=== PATIENT | female | born 1960 | race Caucasian/White ===

== ENCOUNTER 2018-08-14 11:08 | Emergency (ER) | payer BC ==
[~2018-08-14] VITALS: Ht 149.9 cm; Wt 68.0 kg
[2018-08-14 11:15] VITALS: BP 126/89
--- NOTE | 2018-08-14 11:18 | NUR ---
PT TRIAGED AND AMBULATED TO ER LOBBY.
--- NOTE | 2018-08-14 13:00 | NUR ---
PT AMBULATED TO BED 3
--- NOTE | 2018-08-14 13:10 | NUR ---
PT IS A 57 Y/O FEMALE WHO PRESENTS TO THE ED C/O BILATERAL ARM PAIN. 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 PT REPORTS 8/10 ACHING UPPER ARM/SHOULDER PAIN RADIATES TO THE BACK, REPORTS TAKING TYLENOL WITH NO RELIEF. PT DENIES CP, SOB, N/V/D. CMS INTACT, FULL ROM NOTED. PT AWAKE AND ALERT, RR EVEN/UNLABORED. PT REPOSITIONED FOR COMFORT, BED IN LOWEST POSITION. ER MD DR. MALAGON NOTIFIED. WILL CONTINUE TO MONITOR. PMH---ASTHMA NKA
--- NOTE | 2018-08-14 13:30 | NUR ---
PATIENT REPORT GIVEN TO MYRON QUINONES.
[2018-08-14] MEDS ORDERED: traMADol 50 MG TAB PO ONE (14:30)
[2018-08-14] MEDS ORDERED: predniSONE 20 MG TAB PO ONE (14:30)
[2018-08-14] MEDS ORDERED: hydrOXYzine HCL 25 MG TAB PO ONE (14:30)
--- NOTE | 2018-08-14 14:31 | NUR ---
PT TAKEN TO CT.
--- NOTE | 2018-08-14 14:45 | NUR ---
PATIENT RETURN FROM CT.
[2018-08-14 16:22] VITALS: BP 128/88
--- NOTE | 2018-08-14 16:22 | NUR ---
Patient discharged with v/s stable. Written and verbal after care instructions given and explained. Patient alert, oriented and verbalized understanding of instructions. Ambulatory with steady gait. All questions addressed prior to discharge. ID band removed. Patient advised to follow up with PMD. Rx of TRAMADOL HYDROCHLORIDE 50MG AND PREDNISONE 20MG given. Patient educated on indication of medication including possible reaction and side effects. Opportunity to ask questions provided and answered.
== END 2018-08-14 16:22 | disposition home or self-care (01) ==
LOC: MED 11:08
DX: S40.022A Contusion of left upper arm, initial encounter (principal); S40.021A Contusion of right upper arm, initial encounter; M47.892 Other spondylosis, cervical region; J45.909 Unspecified asthma, uncomplicated; X58.XXXA Exposure to other specified factors, initial encounter; Y93.89 Activity, other specified; Y92.89 Other specified places as the place of occurrence of the external cause; Y99.8 Other external cause status
CPT/HCPCS: 72125; 99284; J7512

== ENCOUNTER 2018-09-11 23:33 | Emergency (ER) | payer BC ==
[~2018-09-11] VITALS: Ht 152.4 cm; Wt 74.8 kg
[2018-09-11 23:33] VITALS: BP 146/92
--- NOTE | 2018-09-11 23:33 | NUR ---
PT ANIKA ON GURNEY TO BED #10
--- NOTE | 2018-09-11 23:35 | NUR ---
PT BIBA WITH C/O ALOC. JAVAN AND MARCY RIDDLE STATED THAT PT WAS FOUND ONCONSCIOUS BY DAUGHTER. NEIGHBORS HAD SEEN HER EARLIER ACTING ERRATIC WALKING THROUGH THE NEIGHBORHOOD. DAUGHTER STATED SHE MAY HAVE TAKEN DRUGS, PCP, [facility]. PT IS A/OX1. PT WAS GIVEN NARCAN 6 MG PRIOR TO ER. PT RESPONDS TO PAIN. PUPILS PIN POINT. ER MD MADE AWARE OF STATUS.
[2018-09-11] MEDS ORDERED: ALBUTEROL SULFATE/IPRATROPIU 3 ML SOL IH ONE (23:55)
[2018-09-11] MEDS ORDERED: NACL 0.9% 1,000 ML IV ONE (23:55)
[2018-09-12 00:23] LABS: BASOPHILS # (AUTO) 0.1 K/uL (0.00-0.22); BASOPHILS % (AUTO) 0.7 % (0.0-2.0); EOSINOPHILS % (AUTO) 0.3 % (0.0-4.0); HEMATOCRIT 38.6 % (36-48); LYMPHOCYTES # (AUTO) 3.1 K/uL (2.5-16.5); LYMPHOCYTES % (AUTO) 20.4 % (20.5-51.1); MEAN CORPUSCULAR HEMOGLOBIN 30 pg (27-31); MEAN CORPUSCULAR HGB CONC 34 g/dL (33-37); MEAN CORPUSCULAR VOLUME 88.7 fL (80-94); MONOCYTES % (AUTO) 6.4 % (1.7-9.3); NEUTROPHILS # (AUTO) 10.8 K/uL (1.8-7.7); NEUTROPHILS % (AUTO) 72.2 % (42.2-75.2); PLATELET COUNT (AUTO) 138 K/uL (140-450); RED BLOOD CELL COUNT(AUTO) 4.35 MIL/uL (4.20-5.40); RED CELL DISTRIBUTION WIDTH 13.1 % (11.6-13.7)
[2018-09-12 00:46] LABS: ALBUMIN 3.8 g/dL (3.4-5.0); ANION GAP 13.9 (8-16); ASPARTATE AMINOTRANSFERASE 6 U/L (15-37); CARBON DIOXIDE 24.5 mmol/L (21-32); CHLORIDE 107 mmol/L (98-107); CREATININE 0.6 mg/dL (0.6-1.3); GFR ARICAN-AMERICAN 132 mL/min (>90); GLUCOSE 104 mg/dL (74-106); POTASSIUM 3.4 mmol/L (3.5-5.1); SALICYLATE 3.3 mg/dL (2.8-20.0); SODIUM SERUM 142 mmol/L (136-145); TOTAL BILIRUBIN 0.2 mg/dL (0.0-1.0); UREA NITROGEN, BLOOD 20 mg/dL (7-18)
--- NOTE | 2018-09-12 01:15 | NUR ---
PT WAS ABLE TO USE THE BED LOVETT TO GIVE A U/A SAMPLE. LAB WAS CALLED TO [employer].
[2018-09-12] MEDS ORDERED: NACL 0.9% 1,000 ML IV ONE (01:40)
[2018-09-12 01:51] LABS: APPEARANCE,URINE CLEAR (CLEAR); BILIRUBIN,URINE NEGATIVE (NEGATIVE); BLOOD, URINE TRACE-L (NEGATIVE); COLOR,URINE YELLOW (YELLOW); LEUKOCYTE ESTERASE ,URINE NEGATIVE (NEGATIVE); NITRITE, URINE NEGATIVE (NEGATIVE); UGLUCOSE NEGATIVE (NEGATIVE)
[2018-09-12 02:04] LABS: RBC,URINE 0-5 /HPF (0-5)
--- NOTE | 2018-09-12 02:09 | NUR ---
AMBULATORY TO RESTROOM WITHOUT ASSIST.
[2018-09-12 02:19] LABS: BARBITURATE, URINE NEG. ng/ml (NEG <=200); BENZODIAZEPINE, URINE NEG. ng/mL (NEG <=200); CANNABINOID, URINE NEG. ng/mL (NEG <=50); COCAINE, URINE NEG. ng/mL (NEG <=300); OPIATE, URINE POS. ng/mL (NEG <=2000); PHENCYCLIDINE SCREEN,URINE POS. ng/mL (NEG <=25)
--- NOTE | 2018-09-12 02:20 | NUR ---
PT WAS GIVEN A SANDWICH, PT TOLERATED WELL
[2018-09-12 02:28] LABS: ACETAMINOPHEN < 0.5 ug/ml (10-30)
--- NOTE | 2018-09-12 02:40 | NUR ---
Patient discharged with v/s stable. Written and verbal after care instructions given and explained. Patient verbalized understanding. Ambulatory with steady gait. All questions addressed prior to discharge. Advised to follow up with PMD. PT WAS GIVEN A SUBSTANCE ABUSE RESOURCE PACKET
[2018-09-12 02:45] VITALS: BP 128/78
== END 2018-09-12 02:40 | disposition home or self-care (01) ==
LOC: MED 23:33
DX: S00.83XA Contusion of other part of head, initial encounter (principal); R41.82 Altered mental status, unspecified; F11.10 Opioid abuse, uncomplicated; F16.10 Hallucinogen abuse, uncomplicated; J45.909 Unspecified asthma, uncomplicated; W19.XXXA Unspecified fall, initial encounter; Y93.89 Activity, other specified; Y92.89 Other specified places as the place of occurrence of the external cause; Y99.8 Other external cause status
CPT/HCPCS: 36415; 70450; 71045; 80053; 80305; 81001; 84484; 85025; 87086; 93005; 94640; 96360; 99284; G0480; J7030; J7620; Q0092

== ENCOUNTER 2019-02-13 10:48 | Emergency (ER) | payer SELFPAY ==
[~2019-02-13] VITALS: Ht 144.8 cm; Wt 68.9 kg
[2019-02-13 10:51] VITALS: BP 143/94
[2019-02-13] MEDS ORDERED: KETOROLAC 60 MG/2 ML VIAL IM ONE (11:45)
[2019-02-13 13:20] VITALS: BP 143/94
== END 2019-02-13 13:20 | disposition home or self-care (01) ==
LOC: MED 10:48
DX: S39.011A Strain of muscle, fascia and tendon of abdomen, initial encounter (principal); J45.909 Unspecified asthma, uncomplicated; F17.200 Nicotine dependence, unspecified, uncomplicated; X58.XXXA Exposure to other specified factors, initial encounter; Y93.89 Activity, other specified; Y92.89 Other specified places as the place of occurrence of the external cause; Y99.8 Other external cause status
CPT/HCPCS: 76856; 81002; 81025; 96372; 99284; J1885; Q0092

== ENCOUNTER 2019-03-09 19:06 | Emergency (ER) | payer SELFPAY ==
[~2019-03-09] VITALS: Ht 147.3 cm; Wt 65.8 kg
[2019-03-09 19:06] VITALS: BP 128/80
--- NOTE | 2019-03-09 19:06 | NUR ---
Patient BIBA BLS, transferred to bed 4. RN evaluating patient at bedside.
--- NOTE | 2019-03-09 19:23 | NUR ---
PT BIBA C/O SOB X3 DAYS. PT PLACED ON 2L O2 VIA NC. RR EVEN AND UNLABORED. BREATH SOUNDS CLEAR THROUGHOUT. PT STATES SHE SMOKES 1 PACK EVERY 2 WKS. DENIES DRUG USE. PTS PRESENTS W/ CONSTRICTED PUPILS. PT DOES NOT APPEAR TO BE IN ANY ACUTE DISTRESS AT THIS TIME. VSS. MEDHX: ASTHMA ALLERGIES: DENIES
--- NOTE | 2019-03-09 19:27 | NUR ---
Dr. Staples examining patient.
--- NOTE | 2019-03-09 19:32 | NUR ---
PTS SON CONCERNED ABOUT DRUG INGESTION. PER PTS SON "I FOUND PCP IN HER [place]". SON AT BEDSIDE AT THIS TIME. WILL CONTINUE TO MONITOR.
[2019-03-09] MEDS ORDERED: NACL 0.9% 1,000 ML IV ONE (19:40)
[2019-03-09 20:11] LABS: BASOPHILS # (AUTO) 0.1 K/uL (0.00-0.22); BASOPHILS % (AUTO) 0.8 % (0.0-2.0); EOSINOPHILS # (AUTO) 0.2 K/uL (0-0.4); EOSINOPHILS % (AUTO) 2.2 % (0.0-4.0); HEMATOCRIT 39.2 % (36-48); HEMOGLOBIN 13.1 g/dL (12.0-16.0); LYMPHOCYTES # (AUTO) 2.9 K/uL (2.5-16.5); LYMPHOCYTES % (AUTO) 26.8 % (20.5-51.1); MEAN CORPUSCULAR HEMOGLOBIN 30 pg (27-31); MEAN CORPUSCULAR HGB CONC 34 g/dL (33-37); MEAN CORPUSCULAR VOLUME 90.6 fL (80-94); MONOCYTES # (AUTO) 0.8 K/uL (0.8-1.0); MONOCYTES % (AUTO) 7.5 % (1.7-9.3); NEUTROPHILS # (AUTO) 6.9 K/uL (1.8-7.7); NEUTROPHILS % (AUTO) 62.7 % (42.2-75.2); PLATELET COUNT (AUTO) 296 K/uL (140-450); RED BLOOD CELL COUNT(AUTO) 4.32 MIL/uL (4.20-5.40); RED CELL DISTRIBUTION WIDTH 13.1 % (11.6-13.7)
--- NOTE | 2019-03-09 20:21 | NUR ---
X-Ray at bedside.
--- NOTE | 2019-03-09 20:39 | NUR ---
RR EVEN AND UNLABORED. BED LOCKED AND IN LOWEST POSITON. PT RESTING, VSS. FAMILY AT BEDSIDE. WILL CONTINUE TO MONITOR.
[2019-03-09 20:41] LABS: BARBITURATE, URINE NEG. ng/ml (NEG <=200); BENZODIAZEPINE, URINE NEG. ng/mL (NEG <=200); CANNABINOID, URINE NEG. ng/mL (NEG <=50); COCAINE, URINE NEG. ng/mL (NEG <=300); OPIATE, URINE NEG. ng/mL (NEG <=2000); PHENCYCLIDINE SCREEN,URINE POS. ng/mL (NEG <=25)
[2019-03-09 20:42] LABS: ALBUMIN 4.1 g/dL (3.4-5.0); ANION GAP 16.1 (8-16); CARBON DIOXIDE 26.1 mmol/L (21-32); CREATININE 0.7 mg/dL (0.6-1.3); POTASSIUM 3.2 mmol/L (3.5-5.1); TOTAL BILIRUBIN 0.3 mg/dL (0.0-1.0)
[2019-03-09 21:03] LABS: SALICYLATE 5.3 mg/dL (2.8-20.0)
[2019-03-09 21:14] LABS: ACETAMINOPHEN < 0.5 ug/ml (10-30)
--- NOTE | 2019-03-09 21:45 | NUR ---
PT ABLE TO AMBULATE ON OWN. VSS AT THIS TIME.
--- NOTE | 2019-03-09 21:56 | NUR ---
PT RECEIVED INFORMATION ON SUBSTANCE ABUSE.
[2019-03-09 21:57] VITALS: BP 153/88
--- NOTE | 2019-03-09 21:58 | NUR ---
Patient discharged with v/s stable. Written and verbal after care instructions given and explained. Patient alert, oriented and verbalized understanding of instructions. Ambulatory with to home. All questions addressed prior to discharge. ID band removed. Patient advised to follow up with PMD. Rx of ALBUTEROL given. Patient educated on indication of medication including possible reaction and side effects. Opportunity to ask questions provided and answered. PT GIVEN SUBSTANCE ABUSE INFORMATION. ACCOMPANIED BY SON AND GRANDSON
== END 2019-03-09 21:58 | disposition home or self-care (01) ==
LOC: MED 19:06
DX: R06.00 Dyspnea, unspecified (principal); E86.0 Dehydration; E87.6 Hypokalemia; F19.10 Other psychoactive substance abuse, uncomplicated; J45.909 Unspecified asthma, uncomplicated
CPT/HCPCS: 36415; 71045; 80053; 80305; 83880; 84484; 85025; 93005; 96360; 99284; G0480; G0482; J7030; Q0092

== ENCOUNTER 2019-03-12 12:22 | Emergency (ER) | payer SELFPAY ==
[~2019-03-12] VITALS: Ht 147.3 cm; Wt 67.6 kg
[2019-03-12 12:26] VITALS: BP 129/91
[2019-03-12] MEDS ORDERED: IPRATROPIUM 0.02% 0.5 MG/2.5 ML NEBU INH ONE (12:45)
[2019-03-12] MEDS ORDERED: ALBUTEROL 0.083% 2.5 MG/3 ML NEBU INH ONE (12:45)
[2019-03-12 13:23] LABS: BASOPHILS # (AUTO) 0.1 K/uL (0.00-0.22); BASOPHILS % (AUTO) 0.9 % (0.0-2.0); EOSINOPHILS # (AUTO) 0.2 K/uL (0-0.4); EOSINOPHILS % (AUTO) 2.1 % (0.0-4.0); HEMATOCRIT 37.2 % (36-48); HEMOGLOBIN 12.8 g/dL (12.0-16.0); LYMPHOCYTES % (AUTO) 29.7 % (20.5-51.1); MEAN CORPUSCULAR HEMOGLOBIN 30 pg (27-31); MEAN CORPUSCULAR HGB CONC 34 g/dL (33-37); MEAN CORPUSCULAR VOLUME 88.5 fL (80-94); MONOCYTES # (AUTO) 0.8 K/uL (0.8-1.0); NEUTROPHILS # (AUTO) 5.9 K/uL (1.8-7.7); NEUTROPHILS % (AUTO) 59.3 % (42.2-75.2); PLATELET COUNT (AUTO) 290 K/uL (140-450); RED CELL DISTRIBUTION WIDTH 13.2 % (11.6-13.7)
[2019-03-12 13:40] LABS: ALBUMIN 3.7 g/dL (3.4-5.0); ANION GAP 16.3 (8-16); CARBON DIOXIDE 24.7 mmol/L (21-32); CREATININE 0.6 mg/dL (0.6-1.3); TOTAL BILIRUBIN 0.3 mg/dL (0.0-1.0)
[2019-03-12] MEDS ORDERED: DEXAMETHASONE 10 MG/ML VIAL IM ONE (14:55)
[2019-03-12] MEDS ORDERED: ALBUTEROL SULFATE/IPRATROPIU 3 ML SOL IH ONE (14:55)
[2019-03-12 16:03] VITALS: BP 121/78
== END 2019-03-12 16:14 | disposition home or self-care (01) ==
LOC: MED 12:22
DX: J45.909 Unspecified asthma, uncomplicated (principal); F17.210 Nicotine dependence, cigarettes, uncomplicated; Z71.6 Tobacco abuse counseling
CPT/HCPCS: 36415; 71045; 80053; 84484; 85025; 87804; 94640; 96372; 99284; J1100; J7613; J7620; J7644; 93005; 99285